=== PATIENT | female | born 1955 | race Caucasian/White ===

== ENCOUNTER 2018-02-27 06:46 | Day surgery (SDC) | payer OTHER, BC ==
[2018-02-27] MEDS ORDERED: PROPOFOL 20 ML (08:50)
[2018-02-27] MEDS ORDERED: FENTAnyl 50 MCG/ML VIAL (08:50)
== END 2018-02-27 10:46 | disposition home or self-care (01) ==
LOC: GIL 06:46
DX: D12.0 Benign neoplasm of cecum (principal); K63.5 Polyp of colon; K64.8 Other hemorrhoids; I10 Essential (primary) hypertension
CPT/HCPCS: 45380; 88305